=== PATIENT | male | born 1995 | race Caucasian/White ===

== ENCOUNTER 2023-01-22 01:54 | Day surgery (SDC) | payer BC, SELFPAY ==
[2023-01-17 15:33] VITALS: BMI 35.5
--- NOTE | 2023-01-17 15:37 | PC.NURSE ---
Report to the Outpatient Waiting Room, entrance under the green pavilion located off [facility], at time 1000 on date 01/22/23. Planned Procedure Time: 1200. Time changes happen often and if your time is changed the preop area will call you the afternoon before. - You and your visitor will be asked to self-screen and do not enter if you have any COVID symptoms. - A mask is optional within the hospital at this time. Patients may have clear liquids (water, carbonated beverages, clear teas, apple juice) until 3 hours prior to surgery with a maximum of 20 ounces. - No food from midnight until time of surgery Take the following medications with a SIP of water the morning of surgery: NONE DO NOT STOP ANY OF YOUR OTHER PRESCRIPTION MEDICATIONS PRIOR TO SURGERY EXCEPT THE FOLLOWING Medications to discontinue per physician: N/A Date to take last dose: N/A Please no make-up, nail georgian, hairspray, perfume, deodorant, or body powder the day of surgery. No jewelry (including any body piercings) or valuables the day of surgery, leave them at home. Please take a shower or bath the night before, or the morning of, surgery with an antibacterial soap. Wear comfortable, loose fitting clothing. - Jewelry must be removed prior to entering the operating room. Rings and piercings that are not removed may be cut off. - The hospital will not accept responsibility for valuables. - Please leave all valuables, including medications, at home the day of surgery. If you are going home after surgery, a licensed service parts driver must drive you home. - NO public transportation without another adult if you receive anesthesia. - We recommend that an adult stay with you for 24 hours following discharge. - We also recommend that you do not drive, make important decision, drink alcoholic beverages, or take any drugs that were not prescribed by your health care provider for at least 24 hours after your discharge time. Follow any additional instructions given to you from your surgeon. If you or anyone in your household have experienced Covid symptoms in the past week, please notify your surgeon or the nurse liaison at the phone number below for possible testing. Telephone instructions given to PT - SKYLER NEVAREZ and asked if any additional questions and then verbalized understanding. Patient advised to call surgeon office or pre surgery nurse liaison [phone] if any additional questions.
--- NOTE | 2023-01-19 17:36 | P.HP_ITS ---
H&P: HPI History of Present Illness Date/Time: 01/19/23 17:36 Chief Complaint: tonsillar hypertrophy dysphagia Narrative: planned procedure Review of Systems Review of Systems: All systems reviewed & are unremarkable except as noted in HPI and below [facility] Social History Social History (Updated 01/05/23 @ 10:51 by Racheal Luna [facility]) Years smoked: 8 Smoking status: Former smoker Tobacco type: cigarettes Smoking end date: 02/17/22 Alcohol intake: current Alcohol use details: VERY RARE Substance use: never Substance use type: does not use Lack of Transportation: No Lack of Food: Never True Current Housing: I Have Housing Concerned About Future Housing: No Difficulty Paying Gas/Electric Bills: No Difficulty Paying for Meds: No Currently Unemployed: No Education: High School Diploma/GED Difficulty w/ Childcare or Family Care: No Living arrangements: with friend(s) Spiritual care concerns: No Meds Home Medications and Allergies Home Medications Medication Instructions Recorded Confirmed Type hydroxyzine HCl 10 mg tablet 10 mg PO HS PRN Sleep 01/05/23 01/17/23 History Allergies Allergy/AdvReac Type Severity Reaction Status Date / Time No Known Allergies Allergy Mild Unverified 01/17/23 15:32 Exam Narrative: 4+ tonsils completely obstructing the oropharynx Assessment and Plan Assessment and plan (1) Gagging episode: Code(s): R19.8 - Other specified symptoms and signs involving the digestive system and abdomen Status: Acute Assessment and Plan: Plan operating room tonsillectomy risks were discussed including bleeding infection damage to surrounding structures need for further procedures 3- 5% chance of postoperative bleeding change in taste change in swallow these can be permanent.? Damage to surrounding structures damage to any structure above the clavicles by myself.? Damage to any structure during the induction and remains anesthesia.? Failure to resolve symptoms.? May need a subsequent expansion pharyngoplasty for septoplasty if nasal symptoms ever become bothersome.? Tongue base may also need to be addressed in the future. (2) Sleep-disordered breathing: Code(s): G47.30 - Sleep apnea, unspecified Status: Acute (3) Tonsillar hypertrophy: Code(s): J35.1 - Hypertrophy of tonsils Status: Acute (4) Dysphagia: Code(s): R13.10 - Dysphagia, unspecified Status: Acute
[2023-01-22] VITALS (10 sets, daily range): BP systolic 94–125; BP diastolic 50–87; PULSE 55–79; RESP 12–16; TEMP 36.2–36.3; O2SAT 97–100
[2023-01-22] MEDS: ACETAMINOPHEN 500 MG TABLET 1000 MG PO (10:40)
--- NOTE | 2023-01-22 10:52 | WPDANESEPPF ---
Anes - Initial Pre Proc Eval Procedure: Operation Date: 01/22/23 12:00 Proposed Procedures p Tonsillectomy - Alfie Pérez MD Date/Time: 01/22/23 10:52 Surgeon: Alfie Pérez MD Pre Op Diagnosis: Hypertrophic Tonsils Patient Data Age: 27 Gender: M Height: 1.68 m Weight: 101.5 kg Last Vital Signs Temp 36.2 C L 01/22/23 10:47 Pulse 79 01/22/23 10:47 Resp 14 01/22/23 10:47 BP 125/77 01/22/23 10:47 Pulse Ox 100 01/22/23 10:47 O2 Del Method Room Air 01/22/23 10:47 Allergies Allergy/AdvReac Type Severity Reaction Status Date / Time No Known Allergies Allergy Mild Unverified 01/17/23 15:32 Home Medications Medication Instructions Recorded Confirmed Type hydroxyzine HCl 10 mg tablet 10 mg PO HS PRN Sleep 01/05/23 01/17/23 History Patient hx anesthesia problems: none Family hx anesthesia problems: none Results Review: All pre-operative results and documents have been reviewed as part of the pre-operative evaluation. [facility] Social History Social History Years smoked: 8 Smoking status: Former smoker Tobacco type: cigarettes Smoking end date: 02/17/22 Alcohol intake: current Alcohol use details: VERY RARE Substance use: never Substance use type: does not use Lack of Transportation: No Lack of Food: Never True Current Housing: I Have Housing Concerned About Future Housing: No Difficulty Paying Gas/Electric Bills: No Difficulty Paying for Meds: No Currently Unemployed: No Education: High School Diploma/GED Difficulty w/ Childcare or Family Care: No Living arrangements: with friend(s) Spiritual care concerns: No Anes - Eval Final PreProcedure Day of Procedure 01/22/23 10:52 Patient weight: obese Heart: regular rate and rhythm Lungs: clear to auscultation Airway: Mallampati scale class III Neurological: alert and oriented ASA classification: III Emergent: no Anesthetic plan: proceed Anesthesia type and monitoring: general ETT and standard monitoring Results Review: All pre-operative results and documents have been reviewed as part of the pre-operative evaluation. Informed Consent: The patient's anesthetic plan and its attendant risks and benefits were discussed with the patient/family/POA. Questions were solicited and answers provided to the satisfaction of the patient/family/POA.
--- NOTE | 2023-01-22 11:15 | WPDHPUPDATE1 ---
History and Physical Update Update Date/Time: 01/22/23 11:15 History and Physical has been reviewed, including an updated exam of the patient. There are NO changes in the patient's condition. Risks, benefits, and alternatives have been discussed and questions answered. Patient agrees to proceed with procedure.
[2023-01-22] MEDS: LACTATED RINGERS 1,000 ML 30 ML IV CONT (12:56)
--- NOTE | 2023-01-22 13:14 | W.PM.PROC2 ---
Procedure Note - Detailed Date of Procedure 01/22/23 Pre-op Diagnosis Hypertrophic Tonsils dysphagia sleep disordered breathing tonsillar hypertrophy Post-op Diagnosis Same Procedure Performed tonsillectomy Surgeon Alfie Pérez MD Anesthesia General Indications see above Findings 4+ tonsils very large left side with the minimal bleeding Description of Procedure patient identified consent verified. Patient brought operating. Time-out performed. General anesthesia induced endotracheal tube secured. Patient prepped draped position procedure confirmed 2nd time-out performed. McIvor mouth gag inserted reveal 4+ tonsils. They were removed bilaterally in the extracapsular plane using Bovie electrocautery setting of 10. Any bleeding was controlled with Bovie electric suction electrocautery set a 12 and 15. Left side bled minimally. This was a bilateral procedure. Between tonsils the McIvor mouth gag was lowered then reopened. At the end of the procedure the McIvor mouth gag was lowered and reopened to reveal no further bleeding. Patient tolerated the procedure well no complications I performed all dictated portions of procedure. Care the patient given Anesthesiology McIvor mouth gag removed after tonsillectomy. Blood loss about 10 cc. Estimated Blood Loss -10.0 Drains No Packing No Pathology Yes Complications No immediate complications Condition Stable Disposition PACU [facility] Billing Surgery - Charge Forward: Surgery Billing
[2023-01-22] MEDS: fentaNYL CITRATE INJ (*CRX) 100 MCG/2 ML VIAL 25 MCG IV PUSH ×8 (13:23→14:06)
[2023-01-22] MEDS: oxyCODONE (*CRX) 5 MG/5 ML ORAL SOLN IR PO (14:36)
== END 2023-01-22 15:25 | disposition home or self-care (01) ==
PROVIDERS: PCP Family Medicine; Visit Provider Otolaryngology
PROC: (CPT 42826; principal; 2023-01-22 12:00)
DX: J35.1 Hypertrophy of tonsils (principal); G47.30 Sleep apnea, unspecified; R19.8 Other specified symptoms and signs involving the digestive system and abdomen; R13.10 Dysphagia, unspecified; Z87.891 Personal history of nicotine dependence
CPT/HCPCS: 42826; 88304; A9270; J0330; J2250; J2405; J2704; J3010; J7120